=== PATIENT | male | born 1955 | race Caucasian/White ===

== ENCOUNTER 2016-07-15 21:09 | Observation (INO) | payer BC ==
--- NOTE | ~2016-07-15 | HP ---
Unit #: [id number] #: [id number] Patient: TA WEEKS [id number] [facility]. [place], [place] [address] [id number] MR#: [id number] NAME: TA WEEKS ROOM: 45666 Age: 61 Sex: M Admission Date: 07/15/2016 : 1955 Attending Physician: Daniel Kay M.D. Primary Care Physician: Nixon Taylor M.D. HISTORY AND PHYSICAL REASON FOR ADMISSION Atrial fibrillation with rapid ventricular rate. 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 The patient states that he has been told he has had a history of a "irregular heart beat since 1994." In 1994, he had his gallbladder out. The patient states he has never been told he has had atrial fibrillation. The patient has never had a myocardial infarction, cardiac catheterization, or a stress test. Additional past medical history includes: Hypertension, hyperlipidemia, hiatal hernia, GERD, migraines, and again history of irregular beats. The patient reports that he went to his PCP's office on Friday. His primary care provider is Dr. Taylor. The patient reports he had a chest x-ray, EKG, and blood work done. The patient then reports on Friday he got a call from his PCP's office to report to the ER because he had an abnormal EKG. The patient states that he occasionally has palpitations. He denies any shortness of breath, chest pain, nausea, vomiting, fever, chills, or shortness of air. In the emergency department, the patient's EKG showed atrial fibrillation with rapid ventricular response. His troponin was less than 0.05. The patient was treated with Toprol XL. PAST MEDICAL HISTORY 1. The patient denies history of myocardial infarction, stress test, or cardiac catheterization. 2. History of "irregular beats." 3. Hypertension. 4. Hyperlipidemia. 5. Hiatal hernia. 6. GERD. 7. Migraines. PAST SURGICAL HISTORY 1. Cholecystectomy in 1994. 2. Herniated disk surgery four years ago. 3. Left leg surgery with screws and pins. ALLERGIES No known drug allergies. HOME MEDICATIONS Unit #: [id number] #: [id number] Patient: TA WEEKS 1. Toprol XL 50 mg p.o. daily. 2. Crestor 10 mg p.o. at bedtime. 3. Imitrex 50 mg p.o. daily p.r.n. migraine. 4. Diphenhydramine 50 mg p.o. at bedtime p.r.n. sleep. 5. Aspirin 81 mg p.o. daily. 6. Prilosec 40 mg p.o. daily. FAMILY HISTORY Patient states that his dad had hypertension and had open heart surgery. SOCIAL HISTORY The patient denies tobacco, alcohol, or illicit drug abuse. REVIEW OF SYSTEMS A 10-point review of systems has been completed and is negative unless indicated in the HPI. PHYSICAL EXAMINATION GENERAL: The patient is awake and alert in no acute distress. VITAL SIGNS: Temperature 98.4, heart rate 87, respirations 15, blood pressure 107/84. HEENT: Pupils are equal, round, and reactive. Extraocular movements are intact. No drainage from ears or nares. NECK: Supple. Trachea is midline. Normal carotid upstrokes. No thyromegaly is appreciated. CHEST: Lungs are clear to auscultation bilaterally. No wheezes, rales, or rhonchi. CARDIOVASCULAR: S1, S2. Irregular rhythm. No murmurs, rubs, or gallops are appreciated. ABDOMEN: Soft, nontender, nondistended. Bowel sounds are positive in all four quadrants. No hepatosplenomegaly is appreciated. SKIN: Appears to be warm, dry, and intact. EXTREMITIES: No clubbing or cyanosis. The patient has trace left lower extremity edema. NEUROLOGIC: The patient is alert and oriented x4. He is pleasant and conversant. No focal deficits. Cranial nerves II-XII appear to be intact. DIAGNOSTIC STUDIES LABORATORY: White blood cells 11.8, hemoglobin 15.4, hematocrit 46.5, platelets 233,000. Sodium 140, potassium 3.5, chloride 108, CO2 of 26, BUN 18, creatinine 1.1, glucose 129. Troponin is less than 0.05 x2. Echo and TSH have been ordered. CARDIOVASCULAR: EKG shows atrial fibrillation with a rate of 115 beats per minute. ASSESSMENT 1. Atrial fibrillation with rapid ventricular rate, questionable onset. 2. Hypertension. 3. Hyperlipidemia. 4. Hiatal hernia. 5. Left lower extremity edema. 6. History of "irregular beats." 7. Obesity with a body mass index greater than 30. PLAN I will discuss this case with Dr. Thomas. At this time, I will order a 2D echocardiogram and a TSH. Will continue patient on Toprol XL 50 mg Unit #: [id number] #: [id number] Patient: TA WEEKS p.o. b.i.d. The patient is still in atrial fibrillation. Again, I will discuss this with Dr. [place]. The patient likely will also need an outpatient sleep study. Dictated by Beckie Allen TD: 07/16/2016 09:09 JOB #: [id number] HISTORY AND PHYSICAL Page 1 of 1 X Tari Allen MARKETING LIAISON X HISTORY AND PHYSICAL
--- NOTE | ~2016-07-15 | EKG ---
PATIENT: TA WEEKS UNIT #: [id number] Ventricular Rate: 115 BPM Atrial Rate: 357 BPM QRS Duration: 88 ms Q-T Interval: 316 ms QTC Calculation(Bezet): 437 ms Calculated R Hasty: 47 degrees Calculated T Hasty: -104 degrees Diagnosis Line: Atrial fibrillation with rapid ventricular Diagnosis Line: response Diagnosis Line: ST and T wave abnormality, consider anterolateral Diagnosis Line: ischemia Diagnosis Line: Abnormal ECG Diagnosis Line: No previous ECGs available Diagnosis Line: Confirmed by ROLANDO RUANO MD ([id number]) on Diagnosis Line: 07/16/2016 2:25:53 PM INTERPRETING MD: ALDEN VENTURA
--- NOTE | ~2016-07-15 | HP ---
Unit #: [id number] #: [id number] Patient: TA WEEKS [id number] [address] [place], [place] [address] [id number] MR#: [id number] NAME: TA WEEKS ROOM: 320[address] Age: 61 Sex: M Admission Date: 07/15/2016 : 1955 Attending Physician: Daniel Kay M.D. Primary Care Physician: Nixon Taylor M.D. HISTORY AND PHYSICAL ADDENDUM The patient's CHADS VASc score is 1. The patient will have a TSH and a lipid panel drawn. An echocardiogram will be done and after the echo is done the patient can be discharged home. He will be discharged home on: 1. Toprol XL 50 mg p.o. b.i.d. 2. Crestor 10 mg p.o. at bedtime. 3. Imitrex 50 mg p.o. daily p.r.n. headache. 4. Diphenhydramine 50 mg p.o. at bedtime. 5. Aspirin 81 mg p.o. daily. 6. Prilosec 40 mg p.o. daily. 7. Eliquis 5 mg p.o. b.i.d. Dictated by Tari Allen A.P.R.N. for Bryan Thomas M.D. AM/df TD: 07/16/2016 09:30 JOB #: [id number] HISTORY AND PHYSICAL Page 1 of 1 X Tari Allen APRN X HISTORY AND PHYSICAL
--- NOTE | ~2016-07-15 | CR72 ---
[facility] A Service of [facility] RADIOLOGY TEXT RESULTS PATIENT: TA WEEKS LOCATION: [facility] [id number] : [birth year] UNIT #: [id number] AGE: [address]: Daniel Kay MD SEX: M ORDER DR: [id number] [facility] [address] [place], [place] [address] [id number] MR#: [id number] Acc #: [id number] NAME: TA WEEKS : 1955 SEX: M STUDY DATE/TIME: 07/15/2016 20:57 UNIT: [facility] ROOM: 93839 STUDY DESCRIPTION: CR Chest Single View Portable Attending Physician: Daniel Kay M.D. Ordering Physician: Jame Langley D.O. Primary Care Physician: Nixon Taylor M.D. MEDICAL IMAGING REPORT This report is preliminary unless electronic signature is present EXAM Portable chest 07/15/2016 INDICATIONS Irregular heartbeat for one month. History of hypertension. FINDINGS AP portable views of the chest are compared with 07/12/2016. Cardiac and mediastinal contours are within normal limits. The lungs are clear except for granulomatous calcification. There is no pneumothorax. IMPRESSION No active disease. Dictated by... Maycol Valdez Jr., M.D. THIS IS AN ELECTRONICALLY VERIFIED REPORT Maycol Valdez Jr., M.D. at 07/16/2016 4:22 PM EMELIA/warner TD: 07/16/2016 11:34 JOB #: [id number] MEDICAL IMAGING REPORT Page 1 of 1 COPY
[2016-07-15 19:01] LABS: BASOPHIL# 0.1 X10e3 (0-0.3); BASOPHIL% 0.6 % (0-2.5); EOSINOPHIL% 0.3 % (0.0-7.0); HEMATOCRIT 46.5 % (38.0-50.0); HEMOGLOBIN 15.4 gm/dL (13.0-16.0); LYMPHOCYTE# 2.1 X10e3 (1.0-3.5); MEAN CELL VOLUME 87.2 FL (83-96); MEAN CORPUSCULAR HEMOGLOBIN 28.9 PG (28-34); MEAN CORPUSCULAR HGB CONC 33.1 g/dL (30-36); MONOCYTE# 0.8 X10e3 (0-1.0); MONOCYTE% 6.8 % (3.0-12.0); NEUTROPHIL# 8.8 X10e3 (1.5-7.1); NEUTROPHIL% 74.3 % (40-75); PLATELET COUNT 233 X10e3 (140-420); RED BLOOD COUNT 5.34 X10e (3.90-5.60); RED CELL DISTRIBUTION WIDTH 14.2 % (11.0-15.5); WHITE BLOOD COUNT 11.8 X10e3 (4.0-10.5)
[2016-07-15 19:07] LABS: DIFF IND NO
[2016-07-15 19:22] LABS: ALBUMIN SERUM 4.6 g/dL (3.5-5.0); ALKALINE PHOSPHATASE 68 U/L (32-92); ALT (SGPT) 25 U/L (10-40); AST (SGOT) 24 U/L (10-42); BILIRUBIN,TOTAL 0.8 mg/dL (0.2-2.0); BLOOD UREA NITROGEN 18 mg/dL (9-23); BUN/CREATININE RATIO 16.36; CARBON DIOXIDE 26 mmol/L (22-31); CHLORIDE 108 mmol/L (100-111); CREATININE SERUM 1.1 mg/dL (0.6-1.4); GLOM FILT RATE Estimated ABOVE60 mL/min (>60); GLUCOSE FASTING 129 mg/dL (70-110); POTASSIUM 3.5 mmol/L (3.5-5.1); PROTEIN TOTAL SERUM 7.8 g/dL (6.0-8.3); SODIUM 140 mmol/L (135-145)
[2016-07-15 19:23] LABS: BILIRUBIN, DIRECT <0.1 mg/dL (0.0-0.2); BILIRUBIN,INDIRECT 0.7 mg/dL (0.0-0.9)
[2016-07-15 20:49] LABS: POC - TROPONIN <0.05 ng/mL (<=0.05)
[2016-07-15 21:15] LABS: POC - CKMB 1.7 ng/mL (0.0-7.9); POC - TROPONIN <0.05 ng/mL (<=0.05)
[2016-07-15 21:15] LABS: PARTIAL THROMBOPLASTIN TIME 26.1 SECONDS (23.5-31.3); PROTHROMBIN TIME (PATIENT) 10.2 SECONDS (9.6-11.5)
[2016-07-15] MEDS ORDERED: TOPROL XL50 MG PO (22:25)
[2016-07-15] MEDS ORDERED: IMITREX50 MG PO (22:26)
[2016-07-15] MEDS ORDERED: DIPHENHYDRAMINE50 M1 PO (22:26)
[2016-07-15] MEDS ORDERED: CRESTOR10 MG PO (22:26)
[2016-07-15] MEDS ORDERED: PRILOSEC PO (22:27)
[2016-07-15] MEDS ORDERED: BAYER CHEWABLE81 MG PO (22:27)
[2016-07-16 10:51] LABS: CHOLESTEROL 233 mg/dL (0-200); HDL CHOLESTEROL 40 mg/dL (29-75); LDL/HDL RATIO 4 RATIO (0-4); TRIGLYCERIDES 149 mg/dL (10-160)
[2016-07-16 10:52] LABS: LDL CHOLESTEROL 163 mg/dL (-130)
[2016-07-16] MEDS ORDERED: ELIQUIS5 MG PO (12:57)
== END 2016-07-16 09:15 | disposition home or self-care (01) | DRG 310 ==
LOC: CED 21:09 → CEDOF 23:40
PROVIDERS: Emergency Medicine
DX: I48.91 Unspecified atrial fibrillation (principal); I10 Essential (primary) hypertension; E78.5 Hyperlipidemia, unspecified
CPT/HCPCS: 36415; 71010; 80048; 80061; 80076; 82553; 83735; 84443; 84484; 85025; 85610; 85730; 93005; 93306; 96374; 99285; G0378; J3490